=== PATIENT | female | born 1990 ===

== ENCOUNTER 2022-10-22 00:05 | Inpatient (IN) | payer BC ==
[~2022-10-22] VITALS: Ht 167.6 cm; Wt 116.1 kg
[2022-10-22 00:58] VITALS: BP 136/86
--- NOTE | 2022-10-22 17:16 | PR ---
[facility] [address] [place], [place] [address] Signed Progress Notes IP Datetime Report Generated by CPN: 10/22/2022 17:16 PROGRESS NOTES: [id number] Impression: Normal Progression of Labor; Reassuring Heart Rate Procedures: Artificial ROM; Sterile Vag Exam Plan: Continue Present Management VITAL SIGNS: [id number] Vital Signs: Reviewed; Within Normal Limits EXAM: [id number] Dilatation: 2.0 Effacement: 60 Station: -3 Contractions: rare MEMBRANES: [id number] Comments: Pt seen and examined. 60 and sherman too much for additional cytotec. Discussed options of expectant management, cook cath or AROM. Pt desires AROM. Considering epidural. Vertex well applied and AROM performed for moderate amount of clear fluid. Pt quite uncomfortable and will consider epidural. All questions answered. FETUS A: [id number] FHR Baseline: 135 Variability: Moderate 6-25bpm Accelerations: None Decelerations: None FHR Category: Category I Comments on Fetus A: No evidence of metabolic acidosis FETUS B: [id number] Signing Physician: Pancho Boyer DO Copies: ~ *Electronically Signed* 10/22/22 3701 PANCHO BOYER (FIOR) DO PATIENT NAME: STEPHANIE HOOD PROGRESS NOTE DATE OF : 89 PHYSICIAN: PANCHO BOYER (JD) DO RPT #: [id number] REPORT IS CONFIDENTIAL AND NOT TO BE RELEASED WITHOUT AUTHORIZATION
--- NOTE | 2022-10-22 21:11 | PR ---
[facility] [address] [facility] [place], [place] [address] Signed Progress Notes IP Datetime Report Generated by CPN: 10/22/2022 21:11 PROGRESS NOTES: [id number] Impression: Normal Progression of Labor; Reassuring Heart Rate Procedures: Artificial ROM; Sterile Vag Exam Plan: Continue Present Management VITAL SIGNS: [id number] Vital Signs: Reviewed; Within Normal Limits EXAM: [id number] Dilatation: 2.5 Effacement: 75 Station: -3 Contractions: rare MEMBRANES: [id number] Comments: Pt seen and evaluated. Resting well after epidural. Will continue expectant management. If minimal or no change noted on next cervical exam, would likely insert IUPC and start low dose pitocin FETUS A: [id number] FHR Baseline: 135 Variability: Moderate 6-25bpm Accelerations: None Decelerations: None FHR Category: Category I Comments on Fetus A: No evidence of metabolic acidosis FETUS B: [id number] Signing Physician: Pancho Boyer DO Copies: ~ *Electronically Signed* 10/22/222110 PANCHO BOYER (FIOR) DO PATIENT NAME: STEPHANIE HOOD PROGRESS NOTE DATE OF : 92 PHYSICIAN: PANCHO BOYER (FIOR) DO RPT #: [id number] REPORT IS CONFIDENTIAL AND NOT TO BE RELEASED WITHOUT AUTHORIZATION
--- NOTE | 2022-10-22 23:17 | PR ---
[facility] [address] [place], [place] [address] Signed Progress Notes IP Datetime Report Generated by CPN: 10/22/2022 23:17 PROGRESS NOTES: [id number] Impression: Reassuring Heart Rate Procedures: Sterile Vag Exam Plan: Augmentation Other Informed Consents: Pitocin augmentation VITAL SIGNS: [id number] Vital Signs: Reviewed; Within Normal Limits EXAM: [id number] Dilatation: 2.5 Effacement: 75 Station: -3 Contractions: rare MEMBRANES: [id number] Comments: Pt seen and examined. Sleeping w/ epidural. On recheck, cervix with minimal interval change and difficult to assess adequacy of contractions. Recommended placement of IUPC and augmentation w/ low dose pitocin per protocol. Pt understands and agrees. IUPC placed w/ out difficulty. FETUS A: [id number] FHR Baseline: 135 Variability: Moderate 6-25bpm Accelerations: None Decelerations: None FHR Category: Category I Comments on Fetus A: No evidence of metabolic acidosis FETUS B: [id number] Signing Physician: Pancho Boyer DO Copies: ~ *Electronically Signed* 10/22/22 0644 PANCHO BOYER (FIOR) DO PATIENT NAME: STEPHANIE HOOD PROGRESS NOTE DATE OF : 92 PHYSICIAN: PANCHO BOYER (JD) DO RPT #: [id number] REPORT IS CONFIDENTIAL AND NOT TO BE RELEASED WITHOUT AUTHORIZATION
--- NOTE | 2022-10-23 06:54 | PR ---
[facility] [address] [place], [place] [address] Signed Progress Notes IP Datetime Report Generated by CPN: 10/23/2022 06:54 PROGRESS NOTES: [id number] Impression: Normal Progression of Labor; Reassuring Heart Rate Procedures: Sterile Vag Exam Plan: Continue Present Management; Augmentation Other Informed Consents: Pitocin augmentation VITAL SIGNS: [id number] Vital Signs: Reviewed; Within Normal Limits EXAM: [id number] Dilatation: 5.0 Effacement: 80 Station: -3 Contractions: rare MEMBRANES: [id number] Comments: Pt seen and examined. Doing well. Slept most of the evening. Pitocin augmentation w/ continued inadequate contractions and slow cervical change. On exam (KARISSA Thompson as audio/video technician), position noted to be LOP. Discussed repositioning to encourage vertex rotation. All questions answered. FETUS A: [id number] FHR Baseline: 135 Variability: Moderate 6-25bpm Accelerations: None Decelerations: None FHR Category: Category I Comments on Fetus A: No evidence of metabolic acidosis FETUS B: [id number] Signing Physician: Pancho Boyer DO Copies: ~ *Electronically Signed* 10/23/22 0654 PANCHO BOYER (FIOR) DO PATIENT NAME: STEPHANIE HOOD PROGRESS NOTE DATE OF : 92 PHYSICIAN: PANCHO BOYER (JD) DO RPT #: [id number] REPORT IS CONFIDENTIAL AND NOT TO BE RELEASED WITHOUT AUTHORIZATION
--- NOTE | 2022-10-23 10:28 | PR ---
[facility] [address] [facility] [place], [place] [address] Signed Progress Notes IP Datetime Report Generated by CPN: 10/23/2022 10:28 PROGRESS NOTES: [id number] Impression: Normal Progression of Labor; Reassuring Heart Rate Procedures: Sterile Vag Exam Plan: Continue Present Management; Anticipate Vaginal Delivery Other Informed Consents: Pitocin augmentation VITAL SIGNS: [id number] Vital Signs: Reviewed; Within Normal Limits EXAM: [id number] Dilatation: 9.0 Effacement: 90 Station: -2 Contractions: rare MEMBRANES: [id number] Comments: Pt seen and examined. Doing well. Feeling some pelvic pressure. On exam, cervix well dilated and baby has rotated OA. Anticipated . FETUS A: [id number] FHR Baseline: 135 Variability: Moderate 6-25bpm Accelerations: None Decelerations: None FHR Category: Category I Comments on Fetus A: No evidence of metabolic acidosis FETUS B: [id number] Signing Physician: Pancho Boyer DO Copies: ~ *Electronically Signed* 10/23/22 1028 PANCHO BOYER (FIOR) DO PATIENT NAME: STEPHANIE HOOD PROGRESS NOTE DATE OF : 92 PHYSICIAN: PANCHO BOYER (FIOR) DO RPT #: [id number] REPORT IS CONFIDENTIAL AND NOT TO BE RELEASED WITHOUT AUTHORIZATION
--- NOTE | 2022-10-23 14:48 | PR ---
[facility] [address] [place], [place] [address] Signed Progress Notes IP Datetime Report Generated by CPN: 10/23/2022 14:48 PROGRESS NOTES: [id number] Impression: Reassuring Heart Rate Other Impressions: Slow progression Procedures: Sterile Vag Exam Plan: Continue Present Management Other Informed Consents: Pitocin augmentation VITAL SIGNS: [id number] Vital Signs: Reviewed; Within Normal Limits EXAM: [id number] Dilatation: 9.5 Effacement: 95 Station: -1 Contractions: rare MEMBRANES: [id number] Comments: Pt seen and examined. Comfortable w/ contractions. Slow progression of labor but reassuring FHT and cervix now reducable. position reevaluated and now ROT w/ rotation to PATY w/ practice push. Will continue laboring down and will attempt trial of pushing once complete. Discussed prolonged active stage of labor and indications for if needed. Reviewed adequate pelvis and EFW. Pt desires to continue w/ trial of labor. FETUS A: [id number] FHR Baseline: 135 Variability: Moderate 6-25bpm Accelerations: None Decelerations: None FHR Category: Category I Comments on Fetus A: No evidence of metabolic acidosis FETUS B: [id number] Signing Physician: Pancho Boyer DO Copies: ~ *Electronically Signed* 10/23/22 1446 PANCHO BOYER (FIOR) DO PATIENT NAME: STEPHANIE HOOD PROGRESS NOTE DATE OF : 92 PHYSICIAN: PANCHO BOYER (JD) DO RPT #: [id number] REPORT IS CONFIDENTIAL AND NOT TO BE RELEASED WITHOUT AUTHORIZATION
--- NOTE | 2022-10-24 07:53 | PR ---
[facility] [address] [facility] [place], [place] [address] Signed PP Progress Notes Datetime Report Generated by CPN: 10/24/2022 07:53 SUBJECTIVE: [id number] Pain: Within Normal Limits Nausea/Vomiting: Denies Flatus: Yes Vital Signs: [id number] Vital Signs: Reviewed; Within Normal Limits Cardiovascular: Normal Respiratory: Normal Abdomen/Uterus: Normal Lochia: Normal Vulva/Perineum: Not Done Breasts: Not Done CVA Tenderness: Normal Extremities: Normal Incision: Not Applicable Progress: Normal Exam Comments: fundus firm U-2 nontender IMPRESSION/PLAN/PROCEDURES: [id number] Impression: Normal Progression Plan: Continue Present Management Other Procedures: Pt declines iron infusion and requests oral iron Progress Notes: Pt seen and examined. Doing well. Ambulating, voiding, and tolerating full diet. C/O lightheadedeness. Hgb 8.7. Declines iron infusion and desires oral iron. well. No fevers/chills or other concerns. Anticipate d/c home tomorrow. Signing Physician: Pancho Boyer DO Copies: ~ *Electronically Signed* 10/24/22 075 PANCHO BOYER (FIOR) DO PATIENT NAME: STEPHANIE HOOD PROGRESS NOTE DATE OF : 92 PHYSICIAN: PANCHO BOYER (JD) DO RPT #: [id number] REPORT IS CONFIDENTIAL AND NOT TO BE RELEASED WITHOUT AUTHORIZATION
--- NOTE | 2022-10-25 08:28 | PR ---
[facility] [address] [place], [place] [address] Signed PP Progress Notes Datetime Report Generated by CPN: 10/25/2022 08:28 SUBJECTIVE: [id number] Pain: Within Normal Limits Nausea/Vomiting: Denies Flatus: Yes Vital Signs: [id number] Vital Signs: Reviewed; Within Normal Limits Cardiovascular: Normal Respiratory: Normal Abdomen/Uterus: Normal Lochia: Normal Vulva/Perineum: Not Done Breasts: Normal CVA Tenderness: Normal Extremities: Normal Incision: Not Applicable Progress: Normal Exam Comments: NAD, standing at bedside RRR No dyspnea/ retractions Abd: SNTND, FFBU Ext: trace bilateral pedal edema, neg Lance's BL IMPRESSION/PLAN/PROCEDURES: [id number] Impression: Normal Progression Plan: Continue Present Management; Discharge Other Procedures: Pt declines iron infusion and requests oral iron Progress Notes: 32 yo G1 now P1001 PPD#2 s/p -progressing well : ambulating, voiding, tolerating regular diet, pain well-controlled with orals - well, having some difficulty initially with latch -desires natural family planning, reviewed limitations/ challenges of NFP with and encouraged condom use in addition Signing Physician: Jassi Bell DO *Electronically Signed* 10/25/22827 JASSI BELL DO PATIENT NAME: STEPHANIE HOOD PROGRESS NOTE DATE OF : 92 PHYSICIAN: JASSI BELL #: [id number] REPORT IS CONFIDENTIAL AND NOT TO BE RELEASED WITHOUT AUTHORIZATION
== END 2022-10-25 14:00 | disposition home or self-care (01) | DRG 807 ==
LOC: FBC 00:05
PROVIDERS: ADMIT Obstetrics & Gynecology; ATTEND Obstetrics & Gynecology
PROC: 10E0XZZ Delivery of Products of Conception, External Approach (ICD-10-PCS; principal; 2022-10-22)
PROC: 3E0P7VZ Introduction of Hormone into Female Reproductive, Via Natural or Artificial Opening (ICD-10-PCS; 2022-10-22)
PROC: 10H07YZ Insertion of Other Device into Products of Conception, Via Natural or Artificial Opening (ICD-10-PCS; 2022-10-22)
PROC: 0T9B70Z Drainage of Bladder with Drainage Device, Via Natural or Artificial Opening (ICD-10-PCS; 2022-10-22)
PROC: 10907ZC Drainage of Amniotic Fluid, Therapeutic from Products of Conception, Via Natural or Artificial Opening (ICD-10-PCS; 2022-10-22)
PROC: 00HU33Z Insertion of Infusion Device into Spinal Canal, Percutaneous Approach (ICD-10-PCS; 2022-10-22)
PROC: 3E0R3BZ Introduction of Anesthetic Agent into Spinal Canal, Percutaneous Approach (ICD-10-PCS; 2022-10-22)
DX: O75.5 Delayed delivery after artificial rupture of membranes (principal); Z37.0 Single live birth; Z67.20 Type B blood, Rh positive; O76 Abnormality in fetal heart rate and rhythm complicating labor and delivery
CPT/HCPCS: 01960; 36415; 85027; 86850; 86900; 86901; A9270; J2590; J2795

== ENCOUNTER 2022-10-27 20:57 | Observation (INO) | payer BC ==
[~2022-10-27] VITALS: Ht 182.9 cm; Wt 112.0 kg
--- NOTE | 2022-10-28 03:26 | NUR ---
pt ARRIVED TO [facility] FLOOR FROM ED. VERBAL REPORT RECEIVED FROM [facility]. pt TRANSFERRED SELF TO [facility]. ASSESSMENT COMPLETE. SHAKA HANCOCK FROM [employer] IN ROOM TO EDUCATE pt ON USE OF BREAST PUMP MACHINE. CY[employer] FORENSICS ANALYST TO COMPLETE ADMISSION.
[2022-10-28 03:31] VITALS: BP 127/89
--- NOTE | 2022-10-28 04:08 | NUR ---
ROUNDED ON pt, pt REPORTS SHES GOING TO TRY AND START PUMPING. DENIES NEEDS OR CONCERNS WHEN ASKED. CALL LIGHT IN REACH.
--- NOTE | 2022-10-28 05:06 | NUR ---
ROUNDED ON pt, pt RESTING QUIETLY IN BED WITH EYES CLOSED. RR EVEN AND UNLABORED. NO DISTRESS NOTED. IV SITE WNL, FLUIDS INFUSING DIRECTED. CALL LIGHT IN REACH.
--- NOTE | 2022-10-28 06:09 | NUR ---
ROUNDED ON pt, VSS. IV SITE WNL, FLUIDS INFUSING DIRECTED. pt DENEIS NEED TO VOID. ALSO DENIES NEED FOR PAIN MEDICATION, REPORTS TOLERABLE 3-4/10 PAIN TO LEFT GROIN AREA. NO DEFORMITY/LUMP NOTED. CALL LIGHT IN REACH. RR EVEN AND UNLABORED. WILL MONITOR FOR CHANGES.
[2022-10-28 06:10] VITALS: BP 140/76
--- NOTE | 2022-10-28 07:31 | NUR ---
DR CHRISTINA IN TO SEE PT AT SHIFT REPORT. DISCUSSES DC INSTRUCTIONS WITH PT ALL QUESTIONS ANSWERED. PT RESTING NOW EYES CLOSED AWAKENS TO VOICE, DENIES CONCERNS OR NEEDS OF. FRESH H20 AND CALL LIGHT AT BEDSIDE.
[2022-10-28] MEDS ORDERED: HYDROCODON-ACE1 EA10 PO ×2 (07:52)
[2022-10-28] MEDS ORDERED: NEURONTIN300 MG PO ×2 (07:52)
--- NOTE | 2022-10-28 08:51 | NUR ---
DC INSTRUCTIONS REVIEWED WITH PT AND AFTER GIVEN BY DOCTOR CHRISTINA. QUESTIONS AND CONCERNS DENIED. PT EATING MORNING MEAL WILL CALL WHEN SHE IS READY TO DC.
== END 2022-10-28 09:00 | disposition home or self-care (01) ==
LOC: ED 20:57 → MS 20:59
PROVIDERS: ADMIT General Practice; ATTEND General Practice
DX: G89.18 Other acute postprocedural pain (principal); R10.2 Pelvic and perineal pain; R10.32 Left lower quadrant pain
CPT/HCPCS: 36415; 51701; 74177; 80053; 81001; 83690; 83735; 84703; 85025; 85610; 99285-25; A9270; G0378; J1170; J1885; J2270; J2405; J7121; Q9967

== ENCOUNTER 2023-03-06 15:50 | Emergency (ER) | payer BC ==
[~2023-03-06] VITALS: Ht 167.6 cm; Wt 111.6 kg
[~2023-03-06 15:50] MED LIST: HYDROCODON-ACE1 EA10 PO; NEURONTIN300 MG PO
[2023-03-06] MEDS ORDERED: LEXAPRO10 MG PO (21:08)
[2023-03-06] MEDS ORDERED: VISTARIL50 MG PO (21:11)
[2023-03-06 21:23] VITALS: BP 158/104
== END 2023-03-06 21:16 | disposition home or self-care (01) ==
LOC: ED 15:50
DX: O99.345 Other mental disorders complicating the puerperium (principal); F53.0 Postpartum depression; Z79.899 Other long term (current) drug therapy
CPT/HCPCS: 99283; A9270-GY